=== PATIENT | male | born 1955 | race Two or more races ===

== ENCOUNTER → 2016-09-16 | Outpatient (REF) | payer MEDICARE, MEDICAID ==
[~2016-09-16] MED LIST: /METO25TAB PO; ASPI81TA85 PO; CLOP75TA2 PO; LIPI80TA PO; [UNRECOGNIZED DRUG - CODE] PO
[2016-09-16 18:21] LABS: ALBUMIN 3.7 GM/DL (3.2-5.2); ALBUMIN/GLOBULIN RATIO 0.93 (1.00-1.93); ALKALINE PHOSPHATASE 72 U/L (45-117); ALT/SGPT 24 U/L (12-78); ANION GAP 6 MEQ/L (8-16); AST/SGOT 9 U/L (15-37); BILIRUBIN,TOTAL 0.5 MG/DL (0.2-1.0); BLOOD UREA NITROGEN 16 MG/DL (7-18); CALCIUM LEVEL 8.9 MG/DL (8.8-10.2); CARBON DIOXIDE LEVEL 29 MEQ/L (21-32); CHLORIDE LEVEL 103 MEQ/L (98-107); GLOMERULAR FILTRATION RATE > 60.0 (>49); GLUCOSE, FASTING 111 MG/DL (80-110); POTASSIUM SERUM 4.5 MEQ/L (3.5-5.1); SODIUM LEVEL 138 MEQ/L (136-145); TOTAL PROTEIN 7.7 GM/DL (6.4-8.2)
== END ==
LOC: M SFHCCLAY 10:21
PROVIDERS: ATTEND Family Medicine
DX: E11.9 Type 2 diabetes mellitus without complications (principal)

== ENCOUNTER → 2016-10-11 | Outpatient (REF) | payer MEDICARE, MEDICAID ==
[2016-10-11 11:51] LABS: INR 0.87
== END ==
LOC: M LABDRAWC 10:34
PROVIDERS: ATTEND Neurological Surgery
DX: Z01.818 Encounter for other preprocedural examination (principal); R79.1 Abnormal coagulation profile

== ENCOUNTER → 2016-10-14 | Outpatient (REF) | payer MEDICARE, MEDICAID ==
[2016-10-14 17:04] LABS: BASO % 0.8 % (0.0-1.0); EOS # 0.2 K/mm3 (0.0-0.50); EOS % 3.8 % (0.0-3.0); LARGE UNSTAINED CELL # 0.1 K/mm3 (0.0-0.4); LARGE UNSTAINED CELL % 1.9 % (0.0-4.0); LYMPH # 1.3 K/mm3 (1.5-4.5); LYMPH % 21.9 % (24.0-44.0); MEAN CORPUSCULAR HEMOGLOBIN 31.3 pg (27.0-33.0); MEAN CORPUSCULAR HGB CONC 34.3 g/dl (32.0-36.5); MEAN CORPUSCULAR VOLUME 91.2 fl (80.0-96.0); MONO # 0.4 K/mm3 (0.0-0.8); MONO % 7.6 % (0.0-5.0); NEUTROPHILS # 3.4 K/mm3 (1.8-7.7); PLATELET COUNT, AUTOMATED 275 k/mm3 (150-450); RED CELL DISTRIBUTION WIDTH 12.7 % (11.5-14.5); WHITE BLOOD COUNT 5.3 K/mm3 (4.0-10.0)
== END ==
LOC: M LABDRAWC 16:16
PROVIDERS: ATTEND Neurological Surgery
DX: Z01.818 Encounter for other preprocedural examination (principal)

== ENCOUNTER → 2016-10-17 | Outpatient (CLI) | payer MEDICARE, MEDICAID ==
--- NOTE | 2016-10-17 10:31 | REP ---
LEFT HIP, TWO VIEWS: HISTORY: Pain. There is no acute fracture or dislocation. The joint space is normal in appearance. Calcifications are present in the soft tissue lateral to the greater trochanter. IMPRESSION: There is no acute fracture or dislocation.
== END ==
LOC: M CLY 08:38
PROVIDERS: ATTEND Psychiatry & Neurology Neurology
DX: M25.552 Pain in left hip (principal)

== ENCOUNTER → 2016-10-23 | Outpatient (CLI) | payer MEDICARE, MEDICAID ==
[~2016-10-23] MED LIST changes: +CONRAY-43 43% 50ML VIAL (Q9960) As Ordered ONE; +ISOVUE-M 300 61% 15ML VIAL (Q9967) As Ordered ONE
--- NOTE | 2016-10-23 10:15 | REP ---
CT myelogram lumbar spine: History: Low back pain. No comparison imaging. Technique: The injection procedure is performed and dictated separately. Helical scanning is acquired and axial 4 mm slices are reformatted. Coronal and sagittal multiplanar re-formation images are generated and reviewed. CT findings: There is a mild old appearing wedge compression deformity at the L2 vertebral body with L1-2 and L2-3 well established discogenic spurring. Approximately 50% loss of vertebral body height is seen at the L2 vertebral body. There is subtle old posterior spurring at the inferior endplate of L2 indenting the thecal sac margin. The tip of the conus is normal in position and appearance at the L1 vertebral body level. No disc herniation is seen at L1-2 or at L2-3. At L3-4, there is degenerative disc narrowing and osteophyte formation is seen anteriorly. Minimal facet hypertrophy changes are seen. No neural foraminal encroachment is seen. No central canal stenosis is noted. At L4-L5, there is mild facet hypertrophy bilaterally. Mild diffuse disc bulging is seen. At L5-S1, there is mild facet hypertrophy again noted. There is minimal diffuse disc bulging. No focal disc herniation is seen. Root sleeves are symmetrically opacified. There is no evidence of spondylolysis or spondylolisthesis. Impression: Old L2 compression deformity with associated degenerative disc disease at L1-2, L2-3 and to some degree at the remainder of the lumbar spine levels. Diffuse disc bulging at several levels. No disc herniation, central canal stenosis, or neural foraminal encroachment is appreciated. Incidental note is made of a right renal cyst, 2.9 cm in greatest diameter. Signed by Malcolm Garzon MD 10/23/2016 12:57 P
--- NOTE | 2016-10-23 10:16 | REP ---
LUMBAR MYELOGRAM: The procedure was performed by DUC Vazquez under the direct supervision of Dr. Garzon. The procedure along with its risks, benefits and complications were discussed wit the patient prior to the procedure. Informed consent was obtained both verbally and written. The patient was identified in the x-ray suite and placed in a prone position on the table. Under fluoroscopic guidance, an appropriate site was chosen. This area was prepped and draped in the usual sterile fashion. A procedural "time out" was performed to ensure that the correct patient, site and procedure were being performed. Local infiltrate of anesthesia was achieved using 5 mL of 1% lidocaine. Lumbar puncture was performed at L2-3 via right oblique sublaminal approach using a 3.5-inch, 20-gauge spinal needle. Retrograde free flow of clear CSF was obtained. 8 mL of Isovue 300- M were injected intrathecally for the CT portion of the examination. The patient tolerated the procedure well and went on to CT for further evaluation. Fluoroscopy time of 17 seconds. Reviewed by DUC Vazquez 10/23/2016 12:46 PEdited and Signed by Malcolm Garzon MD 10/23/2016 03:53 P
== END ==
LOC: M RADPRO 07:37
PROVIDERS: ATTEND Neurological Surgery
DX: M51.36 Other intervertebral disc degeneration, lumbar region (principal); M51.06 Intervertebral disc disorders with myelopathy, lumbar region; N28.1 Cyst of kidney, acquired; Z87.891 Personal history of nicotine dependence; E11.40 Type 2 diabetes mellitus with diabetic neuropathy, unspecified; I10 Essential (primary) hypertension; M48.00 Spinal stenosis, site unspecified; M41.9 Scoliosis, unspecified; I25.2 Old myocardial infarction; Z79.82 Long term (current) use of aspirin; Z79.84 Long term (current) use of oral hypoglycemic drugs; Z79.899 Other long term (current) drug therapy; Z95.0 Presence of cardiac pacemaker; Z95.4 Presence of other heart-valve replacement
CPT/HCPCS: 62304; 72131; Q9967

== ENCOUNTER → 2017-03-17 | Outpatient (REF) | payer MEDICARE, MEDICAID ==
[2017-03-17 18:45] LABS: ALKALINE PHOSPHATASE 58 U/L (45-117); ALT/SGPT 24 U/L (12-78); ANION GAP 7 MEQ/L (8-16); AST/SGOT 11 U/L (7-37); BILIRUBIN,TOTAL 0.4 MG/DL (0.2-1.0); BLOOD UREA NITROGEN 24 MG/DL (7-18); CALCIUM LEVEL 9.4 MG/DL (8.8-10.2); CARBON DIOXIDE LEVEL 29 MEQ/L (21-32); CHLORIDE LEVEL 104 MEQ/L (98-107); CREATININE FOR GFR 0.98 MG/DL (0.70-1.30); GLOMERULAR FILTRATION RATE > 60.0 (>49); GLUCOSE, FASTING 121 MG/DL (80-110); POTASSIUM SERUM 4.5 MEQ/L (3.5-5.1); SODIUM LEVEL 140 MEQ/L (136-145)
[2017-03-17 20:03] LABS: ESTIMATED AVERAGE GLUCOSE 123 MG/DL (60-110); HEMOGLOBIN A1c 5.9 %
== END ==
LOC: M SFHCCLAY 09:52
DX: E11.9 Type 2 diabetes mellitus without complications (principal)
CPT/HCPCS: 80053

== ENCOUNTER → 2017-09-15 | Outpatient (REF) | payer MEDICARE, MEDICAID ==
[2017-09-15 12:42] LABS: ANION GAP 8 MEQ/L (8-16); BLOOD UREA NITROGEN 24 MG/DL (7-18); CALCIUM LEVEL 8.3 MG/DL (8.8-10.2); CARBON DIOXIDE LEVEL 31 MEQ/L (21-32); CHLORIDE LEVEL 103 MEQ/L (98-107); CHOLESTEROL LEVEL 114 MG/DL (<200); CREATININE FOR GFR 1.21 MG/DL (0.70-1.30); CREATININE, URINE 25.5 MG/DL; GLOMERULAR FILTRATION RATE > 60.0 (>49); GLUCOSE, FASTING 139 MG/DL (70-100); HDL CHOLESTEROL 30 MG/DL (>40); LDL CHOLESTEROL 50.8 MG/DL (<100); MALB URINE SIEMENS 7.7 MG/L; MAU/CREAT RATIO 30.1 MCG/MG (0.0-30.0); NON-HDL-C 84 MG/DL; POTASSIUM SERUM 4.3 MEQ/L (3.5-5.1); SODIUM LEVEL 142 MEQ/L (136-145); TRIGLYCERIDES LEVEL 166 MG/DL (<150)
[2017-09-15 13:47] LABS: ESTIMATED AVERAGE GLUCOSE 114 MG/DL (60-110); HEMOGLOBIN A1c 5.6 %
== END ==
LOC: M SFHCCLAY 07:56
DX: E11.9 Type 2 diabetes mellitus without complications (principal); E78.2 Mixed hyperlipidemia; I10 Essential (primary) hypertension
CPT/HCPCS: 83036

== ENCOUNTER → 2018-09-15 | Outpatient (REF) | payer OTHER ==
[~2018-09-15] MED LIST changes: -/METO25TAB PO; -CONRAY-43 43% 50ML VIAL (Q9960) As Ordered ONE; -ISOVUE-M 300 61% 15ML VIAL (Q9967) As Ordered ONE; +METO1TAB87 PO
[2018-09-15 12:25] LABS: HEMOGLOBIN A1c 6.7 %
[2018-09-15 12:29] LABS: ALBUMIN 3.6 GM/DL (3.2-5.2); ALT/SGPT 24 U/L (12-78); BILIRUBIN,TOTAL 0.4 MG/DL (0.2-1.0); BLOOD UREA NITROGEN 25 MG/DL (7-18); CALCIUM LEVEL 8.7 MG/DL (8.8-10.2); CARBON DIOXIDE LEVEL 27 MEQ/L (21-32); CHLORIDE LEVEL 103 MEQ/L (98-107); CHOLESTEROL LEVEL 127 MG/DL (<200); CHOLESTEROL RISK RATIO 3.968 (<5); GLOMERULAR FILTRATION RATE > 60.0 (>49); GLUCOSE, FASTING 136 MG/DL (70-100); HDL CHOLESTEROL 32 MG/DL (>40); LDL CHOLESTEROL 44 MG/DL (<100); NON-HDL-C 95 MG/DL; SODIUM LEVEL 138 MEQ/L (136-145); TOTAL PROTEIN 7.2 GM/DL (6.4-8.2); TRIGLYCERIDES LEVEL 253 MG/DL (<150)
[2018-09-15 12:41] LABS: CREATININE, URINE < 13.0 MG/DL; MALB URINE SIEMENS < 5.0 MG/L
== END ==
LOC: M SFHCCLAY 07:31
PROVIDERS: ATTEND Family Medicine
DX: E11.9 Type 2 diabetes mellitus without complications (principal); E78.2 Mixed hyperlipidemia

== ENCOUNTER → 2019-03-17 | Outpatient (REF) | payer MEDICARE ==
[2019-03-17 12:54] LABS: ALBUMIN 3.4 GM/DL (3.2-5.2); ALT/SGPT 15 U/L (12-78); BILIRUBIN,TOTAL 0.3 MG/DL (0.2-1.0); BLOOD UREA NITROGEN 26 MG/DL (7-18); CALCIUM LEVEL 8.1 MG/DL (8.8-10.2); CARBON DIOXIDE LEVEL 29 MEQ/L (21-32); CHLORIDE LEVEL 106 MEQ/L (98-107); CREATININE FOR GFR 1.07 MG/DL (0.70-1.30); GLOMERULAR FILTRATION RATE > 60.0 (>49); GLUCOSE, FASTING 147 MG/DL (70-100); POTASSIUM SERUM 4.2 MEQ/L (3.5-5.1); SODIUM LEVEL 141 MEQ/L (136-145)
[2019-03-17 13:56] LABS: HEMOGLOBIN A1c 6.4 %
== END ==
LOC: M SFHCCLAY 07:04
PROVIDERS: ATTEND Family Medicine
DX: E11.9 Type 2 diabetes mellitus without complications (principal)

== ENCOUNTER → 2019-04-13 | Outpatient (CLI) | payer MEDICARE ==
--- NOTE | 2019-04-13 13:34 | REP ---
Chest x-ray: Two views. History: Bronchitis. Comparison chest x-ray: March 19, 2011. Findings: The patient is status post median sternotomy. A unipolar pacemaker is seen in place. Cardiomegaly is again observed unchanged. There is blunting of the pleural angles bilaterally left more so than right. There is somewhat nodular pleural thickening in the left posterior chest on lateral film. The lungs overall are hyperinflated as before. No definite infiltrate. Impression: Cardiomegaly with pacemaker and prior sternotomy wires. Small bilateral effusions, left more so than right. Nodular pleural thickening visible posteriorly on the lateral radiograph. Consider chest CT, preferably with IV contrast if feasible. Electronically Signed by Malcolm Garzon MD 04/13/2019 06:55 P
== END ==
LOC: M CLY 10:47
PROVIDERS: ATTEND Nurse Practitioner Family
DX: I51.7 Cardiomegaly (principal); J40 Bronchitis, not specified as acute or chronic

== ENCOUNTER → 2019-05-04 | Outpatient (CLI) | payer MEDICARE ==
[~2019-05-04] MED LIST changes: +ISOVUE-370 76% 100ML VIAL (Q9967) As Ordered ONE
--- NOTE | 2019-05-04 09:45 | REP ---
CT of the chest with IV contrast: Comparison is the PA and lateral chest dated 04/13/2019. There is a left lower lobe infiltrate and left pleural effusion. On the comparison PA and lateral chest. There was the appearance of nodular pleural thickening posteriorly on the lateral view. On the review of the CT today this appearance of nodular thickening as likely artifact from the left lower lobe infiltrate. The there is a 17 ml lung nodule in the deep posterior sulcus of the right lower lobe on image 86. There is focal pleural thickening laterally in the lateral segment right middle lobe on image 67. There is no mediastinal, hilar or axillary lymph node enlargement. The thoracic aorta is unremarkable. The cardiac size is upper normal. There is coronary artery calcified atheroma. There are sternotomy wires and there is a pacemaker. The visualized upper abdominal contents demonstrate a partially visualized right renal upper pole cyst but are otherwise unremarkable. Impression: The left lower lobe infiltrate. Left pleural effusion. Right lower lobe 17 mm lung nodule. Right middle lobe pleural thickening laterally. Follow-up to complete resolution is recommended. If the right lower lobe nodule or left lower lobe infiltrate persist PET scan might be considered. Electronically Signed by Valentin Boggs MD 05/04/2019 09:36 A
== END ==
LOC: M RAD 08:31
PROVIDERS: ATTEND Nurse Practitioner Family
DX: J20.9 Acute bronchitis, unspecified (principal)
CPT/HCPCS: 71260; Q9967

== ENCOUNTER → 2019-06-10 | Outpatient (CLI) | payer MEDICARE ==
[~2019-06-10] MED LIST changes: -ISOVUE-370 76% 100ML VIAL (Q9967) As Ordered ONE
--- NOTE | 2019-06-10 11:18 | REP ---
CT CHEST WITHOUT IV CONTRAST: COMPARISON: 05/04/2019 CT chest performed without IV contrast. Sagittal and coronal reconstruction images are performed. Mild diffuse pleural thickening on the right is stable. There appears to be a band of fibroatelectasis in the right lower lobe posteriorly, which is stable. This was recorded as a nodule on the prior study but on reconstruction images, it elongates and does not appear to represent a focal mass, but rather a band of fibroatelectasis. On the left, there is mild to moderate pleural fluid collection with mild thickening of the adjacent pleural surfaces. This has not significantly changed. There is adjacent consolidation in the left lower lobe, which is stable. This may represent infiltrate or fibroatelectasis. Linear fibroatelectasis is seen in the lingula. No new parenchymal findings are seen. The heart is mildly enlarged. There is no evidence of aneurysm of the thoracic aorta. Multiple sternal wires and mediastinal clips are present. There is no pericardial effusion. No axillary or mediastinal adenopathy is seen. Visualized upper abdominal structures are unremarkable and unchanged. There are degenerative changes of the spine. IMPRESSION: Stable findings as discussed above. Mild diffuse right-sided pleural thickening is stable. Band of fibroatelectasis in the right lower lobe is stable. Mild to moderate left pleural fluid collection and adjacent left lower lobe consolidation is stable. Electronically Signed by Valentin Victoria MD 06/10/2019 03:07 P
== END ==
LOC: M RAD 10:25
PROVIDERS: ATTEND Family Medicine
DX: R91.1 Solitary pulmonary nodule (principal)

== ENCOUNTER → 2019-10-08 | Outpatient (REF) | payer MEDICARE ==
[2019-11-06 02:11] LABS: HEMATOCRIT 45.7 % (42.0-52.0); HEMOGLOBIN 14.3 g/dl (13.5-17.5); MEAN CORPUSCULAR HEMOGLOBIN 29.1 pg (27.0-33.0); MEAN CORPUSCULAR HGB CONC 31.3 g/dl (32.0-36.5); MEAN CORPUSCULAR VOLUME 92.9 fl (80.0-96.0); PLATELET COUNT, AUTOMATED 282 10^3/uL (150-450); RED BLOOD COUNT 4.92 10^6/uL (4.30-6.10); WHITE BLOOD COUNT 5.6 10^3/uL (4.0-10.0)
[2019-11-25 19:59] LABS: ALBUMIN 3.4 GM/DL (3.2-5.2); ALT/SGPT 20 U/L (12-78); BILIRUBIN,TOTAL 0.6 MG/DL (0.2-1.0); BLOOD UREA NITROGEN 23 MG/DL (7-18); CALCIUM LEVEL 8.6 MG/DL (8.8-10.2); CARBON DIOXIDE LEVEL 33 MEQ/L (21-32); CHLORIDE LEVEL 101 MEQ/L (98-107); CHOLESTEROL LEVEL 123 MG/DL (<200); CHOLESTEROL RISK RATIO 3.416 (<5); CREATININE FOR GFR 1.22 MG/DL (0.70-1.30); GLOMERULAR FILTRATION RATE > 60.0 (>49); GLUCOSE, FASTING 128 MG/DL (70-100); HDL CHOLESTEROL 36 MG/DL (>40); LDL CHOLESTEROL 55 MG/DL (<100); NON-HDL-C 87 MG/DL; POTASSIUM SERUM 4.7 MEQ/L (3.5-5.1); SODIUM LEVEL 139 MEQ/L (136-145); TOTAL PROTEIN 7.6 GM/DL (6.4-8.2); TRIGLYCERIDES LEVEL 160 MG/DL (<150)
[2019-11-26 14:22] LABS: HEMOGLOBIN A1c 6.3 %
== END ==
LOC: M SFHCCLAY 09:45
PROVIDERS: ATTEND Family Medicine
DX: E11.9 Type 2 diabetes mellitus without complications (principal); I10 Essential (primary) hypertension; I25.10 Atherosclerotic heart disease of native coronary artery without angina pectoris

== ENCOUNTER → 2019-12-28 | Outpatient (CLI) | payer MEDICARE ==
--- NOTE | 2019-12-29 09:54 | REP ---
INDICATION: LEFT LUNG MASS. COMPARISON: CT scan of the chest 05/04/2019 and 06/10/2019. TECHNIQUE: After the intravenous administration of 7.81 mCi of FDG 18 triplane whole-body PET-CT was performed from the skull base to the mid thigh. FINDINGS: In the right anterior cervical lymph node chain and just proximal to the neck root there is a hypermetabolic lymph node with SUV value of 4.3. Seen mixed within the thickened pleural reflections and suspected loculated pleural fluid in the left lower lobe and scattered with in the area of suspected lung consolidation adjacent to that scattered foci of hypermetabolic activity are seen with maximal SUV values of 4.4. The potential nodule seen previously in the right lower lobe on both prior CTs is not hypermetabolic. No other areas of abnormal hypermetabolic activity are seen in the neck, chest, abdomen, or pelvis. IMPRESSION: Left lower lung field hypermetabolic activity, as described above. Inflammatory versus neoplastic change. 1. There is a single focus of hypermetabolic activity seen in the right anterior lower neck, as described above, and likely representing a hypermetabolic lymph node. This should be correlated clinically as it likely represents inflammatory change. Certainly, neoplastic change cannot be completely ruled out by this examination. <Electronically signed by Ranulfo Vazquez > 12/29/19 [id number]
== END ==
LOC: M PLARAD 09:16
PROVIDERS: ATTEND Internal Medicine Pulmonary Disease
DX: R91.8 Other nonspecific abnormal finding of lung field (principal)
CPT/HCPCS: 78815; A9552

== ENCOUNTER → 2020-01-10 | Outpatient (REF) | payer MEDICARE ==
[2020-01-10 17:24] LABS: BASO % 0.5 % (0.0-1.0); EOS # 0.2 10^3/uL (0.0-0.5); EOS % 2.7 % (0.0-3.0); HEMATOCRIT 46.6 % (42.0-52.0); HEMOGLOBIN 14.6 g/dl (13.5-17.5); LYMPH # 1.1 10^3/uL (1.5-5.0); LYMPH % 18.1 % (24.0-44.0); MEAN CORPUSCULAR HEMOGLOBIN 28.9 pg (27.0-33.0); MEAN CORPUSCULAR HGB CONC 31.3 g/dl (32.0-36.5); MEAN CORPUSCULAR VOLUME 92.1 fl (80.0-96.0); MONO # 0.6 10^3/uL (0.0-0.8); MONO % 10.3 % (0.0-5.0); NEUTROPHILS % 68.2 % (36.0-66.0); PLATELET COUNT, AUTOMATED 258 10^3/uL (150-450); RED BLOOD COUNT 5.06 10^6/uL (4.30-6.10); WHITE BLOOD COUNT 5.9 10^3/uL (4.0-10.0)
[2020-01-10 17:48] LABS: PROTHROMBIN TIME 13.4 SECONDS (12.5-14.3)
[2020-01-10 18:16] LABS: CALCIUM LEVEL 8.4 MG/DL (8.8-10.2); CREATININE FOR GFR 1.35 MG/DL (0.70-1.30); GLOMERULAR FILTRATION RATE 56.3 (>49); POTASSIUM SERUM 4.8 MEQ/L (3.5-5.1)
== END ==
LOC: M LAB REF 16:41
PROVIDERS: ATTEND Internal Medicine Pulmonary Disease
DX: R91.8 Other nonspecific abnormal finding of lung field (principal)

== ENCOUNTER → 2020-04-04 | Outpatient (REF) | payer MEDICARE ==
[2020-04-04 11:42] LABS: BASO % 0.5 % (0.0-1.0); EOS # 0.3 10^3/uL (0.0-0.5); EOS % 3.9 % (0.0-3.0); HEMATOCRIT 43.3 % (42.0-52.0); HEMOGLOBIN 13.7 g/dl (13.5-17.5); LYMPH # 1.1 10^3/uL (1.5-5.0); LYMPH % 16.8 % (24.0-44.0); MEAN CORPUSCULAR HEMOGLOBIN 29.4 pg (27.0-33.0); MEAN CORPUSCULAR HGB CONC 31.6 g/dl (32.0-36.5); MEAN CORPUSCULAR VOLUME 92.9 fl (80.0-96.0); MONO # 0.6 10^3/uL (0.0-0.8); MONO % 8.7 % (0.0-5.0); NEUTROPHILS # 4.5 10^3/uL (1.5-8.5); NEUTROPHILS % 69.9 % (36.0-66.0); PLATELET COUNT, AUTOMATED 247 10^3/uL (150-450); RED BLOOD COUNT 4.66 10^6/uL (4.30-6.10); WHITE BLOOD COUNT 6.4 10^3/uL (4.0-10.0)
[2020-04-04 12:16] LABS: ALBUMIN 3.7 GM/DL (3.2-5.2); ALT/SGPT 19 U/L (12-78); BILIRUBIN,TOTAL 0.7 MG/DL (0.2-1.0); BLOOD UREA NITROGEN 32 MG/DL (7-18); CALCIUM LEVEL 9.2 MG/DL (8.8-10.2); CARBON DIOXIDE LEVEL 28 MEQ/L (21-32); CHLORIDE LEVEL 103 MEQ/L (98-107); CREATININE FOR GFR 1.19 MG/DL (0.70-1.30); GLOMERULAR FILTRATION RATE > 60.0 (>49); GLUCOSE, FASTING 145 MG/DL (70-100); POTASSIUM SERUM 4.5 MEQ/L (3.5-5.1); SODIUM LEVEL 137 MEQ/L (136-145); TOTAL PROTEIN 7.6 GM/DL (6.4-8.2)
== END ==
LOC: M SFHCCLAY 07:30
PROVIDERS: ATTEND Family Medicine
DX: E11.9 Type 2 diabetes mellitus without complications (principal); I10 Essential (primary) hypertension

== ENCOUNTER → 2020-10-13 | Outpatient (REF) | payer MEDICARE ==
[2020-10-13 16:15] LABS: HEMOGLOBIN A1c 6.3 %
[2020-10-13 16:41] LABS: ALBUMIN 3.4 GM/DL (3.2-5.2); ALT/SGPT 39 U/L (12-78); BILIRUBIN,TOTAL 0.8 MG/DL (0.2-1.0); BLOOD UREA NITROGEN 22 MG/DL (7-18); CARBON DIOXIDE LEVEL 29 MEQ/L (21-32); CHLORIDE LEVEL 102 MEQ/L (98-107); CHOLESTEROL LEVEL 117 MG/DL (<200); CHOLESTEROL RISK RATIO 4.875 (<5); CREATININE FOR GFR 1.27 MG/DL (0.70-1.30); GLOMERULAR FILTRATION RATE > 60.0 (>49); GLUCOSE, FASTING 145 MG/DL (70-100); HDL CHOLESTEROL 24 MG/DL (>40); LDL CHOLESTEROL 30 MG/DL (<100); NON-HDL-C 93 MG/DL; POTASSIUM SERUM 4.8 MEQ/L (3.5-5.1); SODIUM LEVEL 137 MEQ/L (136-145); TOTAL PROTEIN 7.1 GM/DL (6.4-8.2); TRIGLYCERIDES LEVEL 315 MG/DL (<150)
[2020-10-13 16:51] LABS: MALB URINE SIEMENS 44.1 MG/L; MAU/CREAT RATIO 34.7 MCG/MG (0.0-30.0)
== END ==
LOC: M SFHCCLAY 08:15
PROVIDERS: ATTEND Family Medicine
DX: E11.9 Type 2 diabetes mellitus without complications (principal)

== ENCOUNTER → 2021-01-25 | Outpatient (REF) | payer MEDICARE ==
[2021-01-25 12:31] LABS: BLOOD UREA NITROGEN 40 MG/DL (7-18); CALCIUM LEVEL 8.8 MG/DL (8.8-10.2); CARBON DIOXIDE LEVEL 27 MEQ/L (21-32); CHLORIDE LEVEL 106 MEQ/L (98-107); CREATININE FOR GFR 1.07 MG/DL (0.70-1.30); GLOMERULAR FILTRATION RATE > 60.0 (>49); GLUCOSE, FASTING 162 MG/DL (70-100); POTASSIUM SERUM 4.5 MEQ/L (3.5-5.1); SODIUM LEVEL 140 MEQ/L (136-145)
== END ==
LOC: M LABDRAWC 11:20 → M LAB REF 11:20
PROVIDERS: ATTEND Physician Assistant
DX: I25.5 Ischemic cardiomyopathy (principal)

== ENCOUNTER → 2021-04-19 | Outpatient (REF) | payer MEDICARE, OTHER ==
[2021-04-19 12:45] LABS: BASO % 0.4 % (0.0-1.0); EOS # 0.2 10^3/uL (0.0-0.5); HEMATOCRIT 46.4 % (42.0-52.0); LYMPH # 0.8 10^3/uL (1.5-5.0); LYMPH % 15.8 % (24.0-44.0); MEAN CORPUSCULAR HEMOGLOBIN 30.4 pg (27.0-33.0); MEAN CORPUSCULAR HGB CONC 32.3 g/dl (32.0-36.5); MEAN CORPUSCULAR VOLUME 94.1 fl (80.0-96.0); MONO # 0.6 10^3/uL (0.0-0.8); MONO % 12.1 % (2.0-8.0); NEUTROPHILS # 3.4 10^3/uL (1.5-8.5); NEUTROPHILS % 68.1 % (36.0-66.0); PLATELET COUNT, AUTOMATED 289 10^3/uL (150-450); RED BLOOD COUNT 4.93 10^6/uL (4.30-6.10); WHITE BLOOD COUNT 4.9 10^3/uL (4.0-10.0)
[2021-04-19 13:17] LABS: HEMOGLOBIN A1c 6.3 %
[2021-04-19 13:23] LABS: ALBUMIN 3.8 GM/DL (3.2-5.2); ALT/SGPT 36 U/L (12-78); BILIRUBIN,TOTAL 0.5 MG/DL (0.2-1.0); BLOOD UREA NITROGEN 27 MG/DL (7-18); CALCIUM LEVEL 8.7 MG/DL (8.8-10.2); CARBON DIOXIDE LEVEL 26 MEQ/L (21-32); CHLORIDE LEVEL 102 MEQ/L (98-107); CREATININE FOR GFR 1.27 MG/DL (0.70-1.30); GLOMERULAR FILTRATION RATE > 60.0 (>49); GLUCOSE, FASTING 145 MG/DL (70-100); POTASSIUM SERUM 4.3 MEQ/L (3.5-5.1); SODIUM LEVEL 136 MEQ/L (136-145); TOTAL PROTEIN 7.7 GM/DL (6.4-8.2)
== END ==
LOC: M SFHCCLAY 08:16
PROVIDERS: ATTEND Family Medicine
DX: E11.9 Type 2 diabetes mellitus without complications (principal); I10 Essential (primary) hypertension

== ENCOUNTER 2021-05-03 19:56 | Inpatient (IN) | payer MEDICARE ==
[~2021-05-03] VITALS: Ht 172.7 cm; Wt 133.7 kg
[2021-05-03] MEDS: METOPROLOL 5 MG/5 ML VIAL IV SCH ×3 (20:10→20:32)
[2021-05-03] MEDS ORDERED: NITROGLYCERIN 0.4 MG SUBL TABLET SL PRN (20:10)
[2021-05-03] MEDS ORDERED: CARVedilol 12.5 MG TAB PO ONE (20:25)
[2021-05-03 20:40] LABS: BASO % 0.5 % (0.0-1.0); EOS # 0.1 10^3/uL (0.0-0.5); EOS % 2.1 % (0.0-3.0); HEMATOCRIT 45.4 % (42.0-52.0); HEMOGLOBIN 15.1 g/dl (13.5-17.5); LYMPH # 1.2 10^3/uL (1.5-5.0); LYMPH % 19.5 % (24.0-44.0); MEAN CORPUSCULAR HEMOGLOBIN 31.1 pg (27.0-33.0); MEAN CORPUSCULAR HGB CONC 33.3 g/dl (32.0-36.5); MEAN CORPUSCULAR VOLUME 93.6 fl (80.0-96.0); MONO # 0.6 10^3/uL (0.0-0.8); MONO % 9.5 % (2.0-8.0); NEUTROPHILS # 4.3 10^3/uL (1.5-8.5); NEUTROPHILS % 67.9 % (36.0-66.0); PLATELET COUNT, AUTOMATED 283 10^3/uL (150-450); RED BLOOD COUNT 4.85 10^6/uL (4.30-6.10); WHITE BLOOD COUNT 6.3 10^3/uL (4.0-10.0)
[2021-05-03 21:04] LABS: CK-MB VALUE MASS < 1.0 NG/ML (<3.6); CPK CREATINE PHOSPHOKINASE 66 U/L (39-308); MB/CK RELATIVE INDEX 1.52 (< OR =4)
[2021-05-03 21:09] LABS: ALBUMIN 3.8 GM/DL (3.2-5.2); BILIRUBIN,DIRECT 0.1 MG/DL (0.0-0.2); BILIRUBIN,TOTAL 0.5 MG/DL (0.2-1.0); CALCIUM LEVEL 9.1 MG/DL (8.8-10.2); CREATININE FOR GFR 1.51 MG/DL (0.70-1.30); FREE T4 1.07 NG/DL (0.76-1.46); GLOMERULAR FILTRATION RATE 49.3 (>49); POTASSIUM SERUM 3.9 MEQ/L (3.5-5.1); THYROID STIMULATING HORMONE 2.3 uIU/ML (0.358-3.740); TOTAL PROTEIN 8.1 GM/DL (6.4-8.2)
[2021-05-03 21:12] LABS: INR 0.93; PROTHROMBIN TIME 12.9 SECONDS (12.7-14.5)
[2021-05-03 21:13] LABS: PARTIAL THROMBOPLASTIN TIME 32.8 SECONDS (25.9-37.0)
[2021-05-03] MEDS: NS 1,000 ML IV SCH (21:25)
[2021-05-03] MEDS ORDERED: NS 500 ML IV ONE (21:25)
[2021-05-03 21:28] LABS: RSV AMPLIFICATION NEGATIVE (NEGATIVE)
[2021-05-03 21:46] LABS: CK-MB VALUE MASS < 1.0 NG/ML (<3.6); CPK CREATINE PHOSPHOKINASE 61 U/L (39-308); MB/CK RELATIVE INDEX 1.64 (< OR =4)
[2021-05-03 21:49] LABS: MAGNESIUM LEVEL 2.2 MG/DL (1.8-2.4)
[2021-05-03] MEDS ORDERED: APIXABAN 5 MG TAB (ELIQUIS) PO ONE (22:15)
[2021-05-03] MEDS ORDERED: FURO40TA2 PO (23:23)
[2021-05-03] MEDS ORDERED: CARV12.5 PO (23:23)
[2021-05-03] MEDS ORDERED: ATOR80TA59 PO (23:23)
[2021-05-03] MEDS ORDERED: FAMO20TA4 PO (23:23)
[2021-05-03] MEDS ORDERED: CLOP75TA2 PO (23:23)
[2021-05-03] MEDS ORDERED: RAMI1CAP24 PO (23:23)
[2021-05-03] MEDS ORDERED: FARX1TAB3 PO (23:23)
[2021-05-03] MEDS ORDERED: FLON1SPR (23:23)
[2021-05-03] MEDS ORDERED: VITMTA PO (23:23)
[2021-05-03] MEDS ORDERED: LYRI225C PO (23:23)
[2021-05-03] MEDS ORDERED: METF-839 PO (23:23)
[2021-05-03] MEDS ORDERED: HOME MED LIST COMPLETE! XX SCH (23:25)
[2021-05-04] MEDS ORDERED: METOPROLOL 5 MG/5 ML VIAL IV PRN (00:15)
[2021-05-04] MEDS ORDERED: FAMOTIDINE 20 MG TAB PO PRN (00:35)
[2021-05-04] MEDS ORDERED: GLUCOSE 4GM CHEW TABLET PO PRN (01:00)
[2021-05-04] MEDS ORDERED: GLUCAGON INJ 1MG VIAL SC PRN (01:00)
[2021-05-04] MEDS ORDERED: DEXTROSE 50% 50 ML SYRINGE IV PRN (01:00)
[2021-05-04] MEDS: NS 1,000 ML IV SCH ×2 (05:55→13:33)
[2021-05-04] MEDS: metFORMIN (GLUCOPHAGE) 500MG TAB PO SCH ×2 (08:57→17:18)
[2021-05-04] MEDS: FUROSEMIDE 40 MG TAB PO SCH ×2 (08:57→17:18)
[2021-05-04] MEDS: CLOPIDOGREL 75 MG TAB PO SCH (08:57)
[2021-05-04] MEDS: HumaLOG INSULIN (NovoLOG) PER UNIT SC SCH ×3 (08:57→17:18)
[2021-05-04] MEDS: MULTIVITAMINS/MINERALS THERAP 1 TAB PO SCH (08:57)
[2021-05-04] MEDS: ASPIRIN 81 MG CHEW TABLET PO SCH (08:58)
[2021-05-04] MEDS: APIXABAN 5 MG TAB (ELIQUIS) PO SCH ×2 (08:58→20:30)
[2021-05-04] MEDS: PREGABALIN 75 MG CAP(LYRICA) PO SCH ×2 (08:58→20:28)
[2021-05-04] MEDS: CARVedilol 12.5 MG TAB PO SCH ×2 (08:58→20:29)
[2021-05-04 10:25] LABS: BLOOD UREA NITROGEN 27 MG/DL (7-18); CALCIUM LEVEL 8.6 MG/DL (8.8-10.2); CARBON DIOXIDE LEVEL 29 MEQ/L (21-32); CHLORIDE LEVEL 108 MEQ/L (98-107); CREATININE FOR GFR 1.15 MG/DL (0.70-1.30); GLOMERULAR FILTRATION RATE > 60.0 (>49); GLUCOSE, FASTING 156 MG/DL (70-100); MAGNESIUM LEVEL 2.3 MG/DL (1.8-2.4); POTASSIUM SERUM 4.1 MEQ/L (3.5-5.1); SODIUM LEVEL 141 MEQ/L (136-145)
[2021-05-04] MEDS: ramipriL 5 MG CAP PO SCH (10:27)
[2021-05-04] MEDS: CHLORHEXIDINE GLUCONATE 0.12 % 15ML UDC (PERIDEX ORAL RINSE) MT SCH ×2 (10:27→21:00)
[2021-05-04 15:19] VITALS: BP 115/65
[2021-05-04 16:57] VITALS: BP 107/55
[2021-05-04 20:00] VITALS: BP 123/61
[2021-05-04] MEDS ORDERED: HumaLOG INSULIN (NovoLOG) PER UNIT SC SCH (21:00)
[2021-05-04] MEDS ORDERED: ATORVASTATIN 20 MG TAB PO SCH (21:00)
[2021-05-05] VITALS: BP 105/57
[2021-05-05 04:00] VITALS: BP 122/62
[2021-05-05 04:59] LABS: HEMATOCRIT 42.4 % (42.0-52.0); HEMOGLOBIN 13.5 g/dl (13.5-17.5); MEAN CORPUSCULAR HEMOGLOBIN 31.1 pg (27.0-33.0); MEAN CORPUSCULAR HGB CONC 31.8 g/dl (32.0-36.5); MEAN CORPUSCULAR VOLUME 97.7 fl (80.0-96.0); PLATELET COUNT, AUTOMATED 216 10^3/uL (150-450); RED BLOOD COUNT 4.34 10^6/uL (4.30-6.10); WHITE BLOOD COUNT 6.4 10^3/uL (4.0-10.0)
[2021-05-05 05:25] LABS: BLOOD UREA NITROGEN 21 MG/DL (7-18); CALCIUM LEVEL 8.6 MG/DL (8.8-10.2); CARBON DIOXIDE LEVEL 31 MEQ/L (21-32); CHLORIDE LEVEL 108 MEQ/L (98-107); CREATININE FOR GFR 1.11 MG/DL (0.70-1.30); GLOMERULAR FILTRATION RATE > 60.0 (>49); GLUCOSE, FASTING 136 MG/DL (70-100); POTASSIUM SERUM 3.9 MEQ/L (3.5-5.1); SODIUM LEVEL 143 MEQ/L (136-145)
[2021-05-05 08:00] VITALS: BP 121/73
[2021-05-05] MEDS: ramipriL 5 MG CAP PO SCH (09:05)
[2021-05-05] MEDS: MULTIVITAMINS/MINERALS THERAP 1 TAB PO SCH (09:05)
[2021-05-05] MEDS: FUROSEMIDE 40 MG TAB PO SCH (09:05)
[2021-05-05] MEDS: APIXABAN 5 MG TAB (ELIQUIS) PO SCH (09:05)
[2021-05-05] MEDS: CLOPIDOGREL 75 MG TAB PO SCH (09:05)
[2021-05-05] MEDS: ASPIRIN 81 MG CHEW TABLET PO SCH (09:05)
[2021-05-05 09:06] VITALS: BP 121/73
[2021-05-05] MEDS: CARVedilol 12.5 MG TAB PO SCH (09:06)
[2021-05-05] MEDS: metFORMIN (GLUCOPHAGE) 500MG TAB PO SCH (09:06)
[2021-05-05] MEDS: HumaLOG INSULIN (NovoLOG) PER UNIT SC SCH ×2 (09:07→13:04)
[2021-05-05] MEDS: PREGABALIN 75 MG CAP(LYRICA) PO SCH (09:24)
[2021-05-05] MEDS: CHLORHEXIDINE GLUCONATE 0.12 % 15ML UDC (PERIDEX ORAL RINSE) MT SCH (09:25)
[2021-05-05] MEDS ORDERED: ELIQ5TAB PO (11:04)
== END 2021-05-05 14:13 | disposition home or self-care (01) | DRG 309 ==
LOC: M ED 19:56 → M ED INP 05-04 00:14 → ENRESERV 05-04 13:47 → M PCU 05-04 15:10
PROVIDERS: ADMIT Internal Medicine; ATTEND Internal Medicine
DX: I48.92 Unspecified atrial flutter (principal); J90 Pleural effusion, not elsewhere classified; Z68.41 Body mass index [BMI] 40.0-44.9, adult; I25.10 Atherosclerotic heart disease of native coronary artery without angina pectoris; I25.2 Old myocardial infarction; E11.22 Type 2 diabetes mellitus with diabetic chronic kidney disease; E78.5 Hyperlipidemia, unspecified; N18.30 Chronic kidney disease, stage 3 unspecified; I48.91 Unspecified atrial fibrillation; E66.9 Obesity, unspecified; Z95.1 Presence of aortocoronary bypass graft; Z79.02 Long term (current) use of antithrombotics/antiplatelets; Z79.899 Other long term (current) drug therapy; Z88.8 Allergy status to other drugs, medicaments and biological substances; Z79.84 Long term (current) use of oral hypoglycemic drugs; Z87.891 Personal history of nicotine dependence; Z20.822 Contact with and (suspected) exposure to COVID-19; Z95.810 Presence of automatic (implantable) cardiac defibrillator

== ENCOUNTER → 2021-10-16 | Outpatient (REF) | payer MEDICARE ==
[~2021-10-16] MED LIST changes: +ATOR80TA59 PO; +CARV12.5 PO; +ELIQ5TAB PO; +FAMO20TA4 PO; +FARX1TAB3 PO; +FLON1SPR; +FURO40TA2 PO; +LYRI225C PO; +METF-839 PO; +RAMI1CAP24 PO; +VITMTA PO
[2021-10-16 11:21] LABS: BASO % 0.5 % (0.0-1.0); EOS # 0.2 10^3/uL (0.0-0.5); EOS % 2.6 % (0.0-3.0); HEMATOCRIT 47.9 % (42.0-52.0); HEMOGLOBIN 15.3 g/dl (13.5-17.5); LYMPH # 0.9 10^3/uL (1.5-5.0); LYMPH % 15.1 % (24.0-44.0); MEAN CORPUSCULAR HGB CONC 31.9 g/dl (32.0-36.5); MEAN CORPUSCULAR VOLUME 93.9 fl (80.0-96.0); MONO # 0.6 10^3/uL (0.0-0.8); MONO % 9.2 % (2.0-8.0); NEUTROPHILS # 4.4 10^3/uL (1.5-8.5); NEUTROPHILS % 72.4 % (36.0-66.0); PLATELET COUNT, AUTOMATED 271 10^3/uL (150-450); WHITE BLOOD COUNT 6.1 10^3/uL (4.0-10.0)
[2021-10-16 11:57] LABS: ALBUMIN 3.6 GM/DL (3.2-5.2); ALT/SGPT 17 U/L (12-78); BILIRUBIN,TOTAL 0.5 MG/DL (0.2-1.0); BLOOD UREA NITROGEN 26 MG/DL (7-18); CALCIUM LEVEL 8.8 MG/DL (8.8-10.2); CARBON DIOXIDE LEVEL 31 MEQ/L (21-32); CHLORIDE LEVEL 102 MEQ/L (98-107); CHOLESTEROL LEVEL 132 MG/DL (<200); CHOLESTEROL RISK RATIO 4.258 (<5); CREATININE FOR GFR 1.25 MG/DL (0.70-1.30); GLOMERULAR FILTRATION RATE > 60.0 (>49); GLUCOSE, FASTING 133 MG/DL (70-100); HDL CHOLESTEROL 31 MG/DL (>40); LDL CHOLESTEROL 58 MG/DL (<100); NON-HDL-C 101 MG/DL; SODIUM LEVEL 139 MEQ/L (136-145); TOTAL PROTEIN 7.9 GM/DL (6.4-8.2); TRIGLYCERIDES LEVEL 215 MG/DL (<150)
[2021-10-16 15:23] LABS: HEMOGLOBIN A1c 6.2 %
== END ==
LOC: M SFHCCLAY 08:23
PROVIDERS: ATTEND Family Medicine
DX: E11.9 Type 2 diabetes mellitus without complications (principal)

== ENCOUNTER → 2022-04-19 | Outpatient (REF) | payer MEDICARE ==
[2022-04-19 11:52] LABS: CALCIUM LEVEL 8.4 MG/DL (8.3-10.6); CREATININE FOR GFR 1.39 MG/DL (0.70-1.30); GLOMERULAR FILTRATION RATE 54.1 (>49); POTASSIUM SERUM 4.4 MMOL/L (3.5-5.1)
[2022-04-19 11:53] LABS: ALBUMIN 3.7 G/DL (3.2-5.2); BILIRUBIN,TOTAL 0.5 MG/DL (0.3-1.2); TOTAL PROTEIN 7.4 G/DL (5.7-8.2)
[2022-04-19 12:31] LABS: HEMOGLOBIN A1c 6.1 % (4.0-6.0)
== END ==
LOC: M SFHCCLAY 07:42
PROVIDERS: ATTEND Family Medicine
DX: E11.9 Type 2 diabetes mellitus without complications (principal)

== ENCOUNTER 2022-09-03 06:29 | Day surgery (SDC) | payer MEDICARE, OTHER ==
[~2022-09-03] VITALS: Ht 172.7 cm; Wt 124.6 kg
[~2022-09-03 06:29] MED LIST changes: +AMIO200T49 PO; +FURO20TA2 PO; +NS 1,000 ML IV ONE
[2022-09-03] MEDS ORDERED: propofoL 500 MG/50 ML VIAL As Ordered ONE (08:16)
[2022-09-03] MEDS ORDERED: LIDOCAINE 2% 100MG/5ML SDV (FOR ANES.) As Ordered ONE (08:16)
[2022-09-03 08:34] VITALS: TEMP 97.1
[2022-09-03 09:00] VITALS: BP 130/68; O2SAT 95
[2022-09-03] MEDS ORDERED: SIMETHICONE 40MG/0.6ML DROPS 30ML As Ordered ONE (15:04)
== END 2022-09-03 12:37 | disposition home or self-care (01) ==
LOC: M OPP 06:29
PROVIDERS: ATTEND Internal Medicine Gastroenterology
DX: Z86.010 Personal history of colon polyps (principal); D12.4 Benign neoplasm of descending colon; K57.30 Diverticulosis of large intestine without perforation or abscess without bleeding; K64.8 Other hemorrhoids; Z87.891 Personal history of nicotine dependence; Z79.01 Long term (current) use of anticoagulants; Z79.02 Long term (current) use of antithrombotics/antiplatelets; Z79.84 Long term (current) use of oral hypoglycemic drugs

== ENCOUNTER → 2023-04-21 | Outpatient (REF) | payer OTHER, MEDICAID ==
[~2023-04-21] MED LIST changes: -NS 1,000 ML IV ONE
[2023-04-21 12:00] LABS: BASO % 0.6 % (0.0-1.0); EOS # 0.2 10^3/uL (0.0-0.5); EOS % 3.1 % (0.0-3.0); HEMATOCRIT 44.1 % (42.0-52.0); HEMOGLOBIN 14.2 g/dl (13.5-17.5); LYMPH # 0.8 10^3/uL (1.5-5.0); LYMPH % 15.5 % (24.0-44.0); MEAN CORPUSCULAR HEMOGLOBIN 30.5 pg (27.0-33.0); MEAN CORPUSCULAR HGB CONC 32.2 g/dl (32.0-36.5); MEAN CORPUSCULAR VOLUME 94.8 fl (80.0-96.0); MONO # 0.4 10^3/uL (0.0-0.8); NEUTROPHILS # 3.6 10^3/uL (1.5-8.5); NEUTROPHILS % 72.6 % (36.0-66.0); PLATELET COUNT, AUTOMATED 208 10^3/uL (150-450); RED BLOOD COUNT 4.65 10^6/uL (4.30-6.10); WHITE BLOOD COUNT 4.9 10^3/uL (4.0-10.0)
[2023-04-21 12:28] LABS: HEMOGLOBIN A1c 5.6 % (4.0-6.0)
[2023-04-21 12:35] LABS: ALBUMIN 3.8 G/DL (3.2-5.2); BILIRUBIN,TOTAL 0.6 MG/DL (0.3-1.2); CALCIUM LEVEL 8.9 MG/DL (8.3-10.6); CHOLESTEROL RISK RATIO 3.7 (<5); CREATININE FOR GFR 1.34 MG/DL (0.70-1.30); GLOMERULAR FILTRATION RATE 56.3 (>49); HDL CHOLESTEROL 33.5 MG/DL (>40); LDL CHOLESTEROL 57.9 MG/DL (<100); NON-HDL-C 90.5 MG/DL; THYROID STIMULATING HORMONE 1.375 uIU/ML (0.55-4.78)
== END ==
LOC: M SFHCCLAY 08:37
PROVIDERS: ATTEND Family Medicine
DX: E11.9 Type 2 diabetes mellitus without complications (principal); I10 Essential (primary) hypertension

== ENCOUNTER → 2023-10-20 | Outpatient (REF) | payer OTHER, MEDICAID ==
[~2023-10-20] MED LIST changes: -RAMI1CAP24 PO; +RAMI5CAP60 PO
[2023-10-20 11:37] LABS: BILIRUBIN,TOTAL 0.7 MG/DL (0.3-1.2); CALCIUM LEVEL 8.9 MG/DL (8.3-10.6); CREATININE FOR GFR 1.46 MG/DL (0.70-1.30); POTASSIUM SERUM 4.7 MMOL/L (3.5-5.1); PSA SCREENING 0.25 NG/ML (< 4.00); TOTAL PROTEIN 7.4 G/DL (5.7-8.2)
== END ==
LOC: M SFHCCLAY 08:14
PROVIDERS: ATTEND Family Medicine
DX: I10 Essential (primary) hypertension (principal); Z12.5 Encounter for screening for malignant neoplasm of prostate
CPT/HCPCS: 80053; G0103

== ENCOUNTER 2024-01-12 16:06 | Inpatient (IN) | payer OTHER, MEDICAID ==
[~2024-01-12] VITALS: Ht 172.7 cm; Wt 113.8 kg
[2024-01-12] MEDS ORDERED: RAMI2.5C42 PO (16:19)
[2024-01-12] MEDS ORDERED: NITR0.4S14 SL (16:19)
[2024-01-12] MEDS ORDERED: ASPI81CH33 PO (16:19)
[2024-01-12] MEDS ORDERED: CARV6.25 PO (16:19)
[2024-01-12] MEDS ORDERED: BUPR-71 PO (16:19)
[2024-01-12 16:48] LABS: BASO % 0.3 % (0.0-1.0); EOS # 0.1 10^3/uL (0.0-0.5); EOS % 2.4 % (0.0-3.0); HEMATOCRIT 41.6 % (42.0-52.0); HEMOGLOBIN 13.8 g/dl (13.5-17.5); LYMPH # 1.2 10^3/uL (1.5-5.0); LYMPH % 19.7 % (24.0-44.0); MEAN CORPUSCULAR HEMOGLOBIN 31.9 pg (27.0-33.0); MEAN CORPUSCULAR HGB CONC 33.2 g/dl (32.0-36.5); MEAN CORPUSCULAR VOLUME 96.1 fl (80.0-96.0); MONO # 0.8 10^3/uL (0.0-0.8); MONO % 14.2 % (2.0-8.0); NEUTROPHILS # 3.7 10^3/uL (1.5-8.5); NEUTROPHILS % 63.2 % (36.0-66.0); PLATELET COUNT, AUTOMATED 271 10^3/uL (150-450); RED BLOOD COUNT 4.33 10^6/uL (4.30-6.10); WHITE BLOOD COUNT 5.8 10^3/uL (4.0-10.0)
[2024-01-12 17:03] LABS: CALCIUM LEVEL 9.3 MG/DL (8.3-10.6); CREATININE FOR GFR 1.27 MG/DL (0.70-1.30); GLOMERULAR FILTRATION RATE 59.7 (>42); MAGNESIUM LEVEL 2.3 MG/DL (1.8-2.4); PHOSPHORUS LEVEL 3.9 MG/DL (2.4-5.1); POTASSIUM SERUM 4.2 MMOL/L (3.5-5.1)
[2024-01-12 17:04] LABS: CK-MB VALUE MASS 1.1 NG/ML (<3.6); MB/CK RELATIVE INDEX 1.25 (< OR =4)
[2024-01-12] MEDS: AMIODARONE 150MG/3ML VIAL IVP STA (17:05)
[2024-01-12 17:07] LABS: THYROID STIMULATING HORMONE 2.077 uIU/ML (0.55-4.78)
[2024-01-12 17:08] LABS: FREE T4 1.24 NG/DL (0.89-1.76)
[2024-01-12 17:14] LABS: INR 1.13; PARTIAL THROMBOPLASTIN TIME 36.2 SECONDS (24.8-34.2); PROTHROMBIN TIME 14.8 SECONDS (12.5-14.5)
[2024-01-12] MEDS: AMIODARONE HCL 360 MG in IV 1 EA IV SCH (18:42)
[2024-01-12] MEDS ORDERED: FURO40TA2 PO (19:25)
[2024-01-12] MEDS ORDERED: MULTTAB61 PO (19:25)
[2024-01-12] MEDS ORDERED: ELIQ5TAB PO (19:25)
[2024-01-12] MEDS ORDERED: HOME MED LIST COMPLETE! XX SCH (19:30)
[2024-01-12] MEDS ORDERED: NITROGLYCERIN 0.4MG SUBL TABLET SL PRN (20:45)
[2024-01-12] MEDS ORDERED: DAPAGLIFLOZIN PROPANEDIOL 10MG TABLET (FARXIGA) PO SCH (21:00)
[2024-01-12] MEDS ORDERED: MAGNESIUM SULFATE IN WATER 2GM 50ML BAG (40MG/ML) (FOR ER ONLY) As Ordered ONE (21:57)
[2024-01-12 22:00] VITALS: BP 124/80; TEMP 98.4; O2SAT 95
[2024-01-12] MEDS: ATORVASTATIN 20 MG TAB PO SCH (22:12)
[2024-01-12] MEDS: PREGABALIN 75 MG CAP(LYRICA) PO SCH (22:12)
[2024-01-12] MEDS: CARVedilol 6.25 MG TAB PO SCH (22:13)
[2024-01-12] MEDS: FAMOTIDINE 20 MG TAB PO SCH (22:13)
[2024-01-12] MEDS: APIXABAN 5 MG TAB (ELIQUIS) PO SCH (22:13)
[2024-01-12] MEDS: MAGNESIUM SULFATE IN WATER 2 GM in IV 1 EA IV STA (22:14)
[2024-01-12 22:15] VITALS: BP 105/60; O2SAT 94
[2024-01-12 22:30] VITALS: BP 101/60; O2SAT 93
[2024-01-12 23:00] VITALS: BP 97/54; O2SAT 94
[2024-01-12] MEDS: LIDOCAINE 2% INJ 100 MG/5 ML SYRINGE IV ONE (23:02)
[2024-01-12] MEDS: LIDOCAINE 2GM IN D5W 500ML 2,000 MG in IV 1 EA IV SCH (23:03)
[2024-01-13] VITALS (19 sets, daily range): BP systolic 100–137; BP diastolic 61–88; TEMP 97.2–97.6; O2SAT 93–96
[2024-01-13] MEDS: AMIODARONE HCL 360 MG in IV 1 EA IV SCH (00:47)
[2024-01-13 04:42] LABS: BASO % 0.4 % (0.0-1.0); EOS # 0.1 10^3/uL (0.0-0.5); EOS % 2.3 % (0.0-3.0); HEMATOCRIT 40.1 % (42.0-52.0); LYMPH % 19.7 % (24.0-44.0); MEAN CORPUSCULAR HEMOGLOBIN 31.1 pg (27.0-33.0); MEAN CORPUSCULAR HGB CONC 32.4 g/dl (32.0-36.5); MEAN CORPUSCULAR VOLUME 95.9 fl (80.0-96.0); MONO # 0.6 10^3/uL (0.0-0.8); MONO % 10.8 % (2.0-8.0); NEUTROPHILS # 3.5 10^3/uL (1.5-8.5); NEUTROPHILS % 66.6 % (36.0-66.0); PLATELET COUNT, AUTOMATED 217 10^3/uL (150-450); RED BLOOD COUNT 4.18 10^6/uL (4.30-6.10); WHITE BLOOD COUNT 5.3 10^3/uL (4.0-10.0)
[2024-01-13 05:07] LABS: BLOOD UREA NITROGEN 24 MG/DL (9-23); CALCIUM LEVEL 8.7 MG/DL (8.3-10.6); CARBON DIOXIDE LEVEL 31 MMOL/L (20-31); CHLORIDE LEVEL 104 MMOL/L (98-107); CREATININE FOR GFR 1.11 MG/DL (0.70-1.30); GLOMERULAR FILTRATION RATE > 60.0 (>42); GLUCOSE, FASTING 122 MG/DL (74-106); MAGNESIUM LEVEL 2.8 MG/DL (1.8-2.4); POTASSIUM SERUM 4.2 MMOL/L (3.5-5.1); SODIUM LEVEL 139 MMOL/L (136-145)
[2024-01-13] MEDS ORDERED: ramipriL 1.25 MG CAP PO SCH (09:00)
[2024-01-13] MEDS ORDERED: FUROSEMIDE 40 MG TAB PO SCH ×2 (09:00→12:00)
[2024-01-13] MEDS: LIDOCAINE 2GM IN D5W 500ML 2,000 MG in IV 1 EA IV SCH (09:06)
[2024-01-13] MEDS: ASPIRIN 81MG CHEW TABLET PO SCH (09:07)
[2024-01-13] MEDS: buPROPion **SR TABLET** (ZYBAN) 150MG PO SCH (09:07)
[2024-01-13] MEDS ORDERED: GLUCOSE 4 GM CHEW PO PRN (10:45)
[2024-01-13] MEDS ORDERED: GLUCAGON INJ 1MG VIAL SC PRN (10:45)
[2024-01-13] MEDS ORDERED: DEXTROSE 50% 50ML SYRINGE IV PRN (10:45)
[2024-01-13] MEDS: ACETAMINOPHEN 325 MG TAB PO ONE (10:56)
[2024-01-13] MEDS ORDERED: INSULIN LISPRO (NovoLOG) PER UNIT SC SCH ×2 (12:00→21:00)
== END 2024-01-13 11:55 | disposition short-term general hospital (02) | DRG 309 ==
LOC: M ED 16:06 → EDBD 16:06 → M ED INP 20:45 → M ICU 21:36
PROVIDERS: ADMIT Student in an Organized Health Care Education/Training Program; ATTEND Internal Medicine Pulmonary Disease
PROC: B246ZZZ Ultrasonography of Right and Left Heart (ICD-10-PCS; principal; 2024-01-13)
DX: I47.29 Other ventricular tachycardia (principal); I50.32 Chronic diastolic (congestive) heart failure; I48.91 Unspecified atrial fibrillation; I25.5 Ischemic cardiomyopathy; I25.10 Atherosclerotic heart disease of native coronary artery without angina pectoris; E78.5 Hyperlipidemia, unspecified; E11.40 Type 2 diabetes mellitus with diabetic neuropathy, unspecified; I11.0 Hypertensive heart disease with heart failure; G25.81 Restless legs syndrome; F32.A Depression, unspecified; Z95.1 Presence of aortocoronary bypass graft; Z95.810 Presence of automatic (implantable) cardiac defibrillator; Z79.01 Long term (current) use of anticoagulants; Z79.82 Long term (current) use of aspirin; Z79.84 Long term (current) use of oral hypoglycemic drugs; Z79.899 Other long term (current) drug therapy; Z88.8 Allergy status to other drugs, medicaments and biological substances

== ENCOUNTER → 2024-03-23 | Outpatient (REF) | payer OTHER, MEDICAID ==
[~2024-03-23] MED LIST changes: +ASPI81CH33 PO; +BUPR-71 PO; +CARV6.25 PO; +MULTTAB61 PO; +NITR0.4S14 SL; +RAMI2.5C42 PO
[2024-03-23 12:33] LABS: CREATININE FOR GFR 1.35 MG/DL (0.70-1.30); GLOMERULAR FILTRATION RATE 55.6 (>42)
== END ==
LOC: M LABDRAWC 11:21
PROVIDERS: ATTEND Internal Medicine Cardiovascular Disease
DX: N18.30 Chronic kidney disease, stage 3 unspecified (principal)

== ENCOUNTER → 2024-04-22 | Outpatient (REF) | payer MEDICARE, MEDICAID ==
[2024-04-22 12:42] LABS: BASO % 0.6 % (0.0-1.0); EOS # 0.2 10^3/uL (0.0-0.5); EOS % 2.5 % (0.0-3.0); HEMATOCRIT 47.1 % (42.0-52.0); LYMPH # 0.8 10^3/uL (1.5-5.0); LYMPH % 11.8 % (24.0-44.0); MEAN CORPUSCULAR HEMOGLOBIN 29.9 pg (27.0-33.0); MEAN CORPUSCULAR HGB CONC 31.8 g/dl (32.0-36.5); MEAN CORPUSCULAR VOLUME 93.8 fl (80.0-96.0); MONO # 0.5 10^3/uL (0.0-0.8); MONO % 8.2 % (2.0-8.0); NEUTROPHILS # 4.9 10^3/uL (1.5-8.5); NEUTROPHILS % 76.6 % (36.0-66.0); PLATELET COUNT, AUTOMATED 267 10^3/uL (150-450); RED BLOOD COUNT 5.02 10^6/uL (4.30-6.10); WHITE BLOOD COUNT 6.4 10^3/uL (4.0-10.0)
[2024-04-22 13:01] LABS: HEMOGLOBIN A1c 5.6 % (4.0-6.0)
[2024-04-22 13:15] LABS: BILIRUBIN,TOTAL 0.4 MG/DL (0.3-1.2); CHOLESTEROL RISK RATIO 3.94 (<5); CREATININE FOR GFR 1.62 MG/DL (0.70-1.30); GLOMERULAR FILTRATION RATE 45.1 (>42); HDL CHOLESTEROL 37.3 MG/DL (>40); LDL CHOLESTEROL 85.1 MG/DL (<100); NON-HDL-C 109.7 MG/DL; POTASSIUM SERUM 4.4 MMOL/L (3.5-5.1); TOTAL PROTEIN 7.8 G/DL (5.7-8.2)
[2024-04-22 13:16] LABS: THYROID STIMULATING HORMONE 1.652 uIU/ML (0.55-4.78)
== END ==
LOC: M SFHCCLAY 08:23
PROVIDERS: ATTEND Family Medicine
DX: I10 Essential (primary) hypertension (principal); E11.9 Type 2 diabetes mellitus without complications

== ENCOUNTER → 2024-06-02 | Outpatient (REF) | payer MEDICARE, MEDICAID ==
[2024-06-02 13:12] LABS: ALBUMIN 3.9 G/DL (3.2-5.2); ALKALINE PHOSPHATASE 65 U/L (40-129); ALT/SGPT 59 U/L (7.0-40); AST/SGOT 27 U/L (<34); BILIRUBIN,TOTAL 0.4 MG/DL (0.3-1.2); BLOOD UREA NITROGEN 34 MG/DL (9-23); CALCIUM LEVEL 9.1 MG/DL (8.3-10.6); CARBON DIOXIDE LEVEL 31 MMOL/L (20-31); CHLORIDE LEVEL 102 MMOL/L (98-107); CK-MB VALUE MASS < 1.0 NG/ML (<3.6); CREATININE FOR GFR 1.44 MG/DL (0.70-1.30); GLOMERULAR FILTRATION RATE 51.6 (>42); GLUCOSE, FASTING 103 MG/DL (74-106); MAGNESIUM LEVEL 2.5 MG/DL (1.8-2.4); POTASSIUM SERUM 4.4 MMOL/L (3.5-5.1); SODIUM LEVEL 142 MMOL/L (136-145); TOTAL PROTEIN 7.7 G/DL (5.7-8.2)
[2024-06-02 13:18] LABS: CPK CREATINE PHOSPHOKINASE 118 U/L (46-171); MB/CK RELATIVE INDEX 0.84 (< OR =4)
== END ==
LOC: M SFHCCLAY 09:28
PROVIDERS: ATTEND Nurse Practitioner Family
DX: I10 Essential (primary) hypertension (principal); M51.372 Other intervertebral disc degeneration, lumbosacral region with discogenic back pain and lower extremity pain; R29.898 Other symptoms and signs involving the musculoskeletal system

== ENCOUNTER → 2024-06-17 | Outpatient (REF) | payer MEDICARE, MEDICAID ==
[2024-06-17 13:21] LABS: ALBUMIN 3.8 G/DL (3.2-5.2); BILIRUBIN,TOTAL 0.5 MG/DL (0.3-1.2); CALCIUM LEVEL 9.5 MG/DL (8.3-10.6); CREATININE FOR GFR 1.97 MG/DL (0.70-1.30); GLOMERULAR FILTRATION RATE 35.9 (>42); MAGNESIUM LEVEL 2.3 MG/DL (1.8-2.4); TOTAL PROTEIN 7.4 G/DL (5.7-8.2)
== END ==
LOC: M SFHCCLAY 08:27
PROVIDERS: ATTEND Nurse Practitioner Family
DX: E83.41 Hypermagnesemia (principal); I10 Essential (primary) hypertension

== ENCOUNTER → 2024-06-17 | Outpatient (CLI) | payer MEDICARE, MEDICAID | LOC: M PLAIMG 07:04 | PROVIDERS: ATTEND Nurse Practitioner Family | DX: M51.372 Other intervertebral disc degeneration, lumbosacral region with discogenic back pain and lower extremity pain (principal); R29.898 Other symptoms and signs involving the musculoskeletal system ==

== ENCOUNTER → 2024-07-02 | Outpatient (REF) | payer MEDICARE, MEDICAID ==
[2024-07-02 18:50] LABS: ALBUMIN 4.1 G/DL (3.2-5.2); BILIRUBIN,TOTAL 0.4 MG/DL (0.3-1.2); CALCIUM LEVEL 9.2 MG/DL (8.3-10.6); CREATININE FOR GFR 1.73 MG/DL (0.70-1.30); GLOMERULAR FILTRATION RATE 41.9 (>42); POTASSIUM SERUM 5.2 MMOL/L (3.5-5.1); TOTAL PROTEIN 7.9 G/DL (5.7-8.2)
== END ==
LOC: M SFHCCLAY 14:45
PROVIDERS: ATTEND Family Medicine
DX: R29.898 Other symptoms and signs involving the musculoskeletal system (principal)

== ENCOUNTER → 2024-10-22 | Outpatient (REF) | payer MEDICARE, MEDICAID ==
[~2024-10-22] MED LIST changes: -AMIO200T49 PO; +AMIO200T54 PO
[2024-10-22 12:41] LABS: PLATELET COUNT, AUTOMATED 292 10^3/uL (150-450)
[2024-10-22 13:12] LABS: ALT/SGPT 83.0 U/L (7.0-40); AST/SGOT 43.0 U/L (<34); CALCIUM LEVEL 8.3 MG/DL (8.3-10.6); CARBON DIOXIDE LEVEL 33.0 MMOL/L (20-31); CHLORIDE LEVEL 105.0 MMOL/L (98-107); CREATININE FOR GFR 1.45 MG/DL (0.70-1.30); GLOMERULAR FILTRATION RATE 51.8 (>42); POTASSIUM SERUM 4.0 MMOL/L (3.5-5.1); SODIUM LEVEL 147.0 MMOL/L (136-145)
[2024-10-22 13:17] LABS: ESTIMATED AVERAGE GLUCOSE 117.0 MG/DL (60-110)
== END ==
LOC: M SFHCCLAY 08:23
PROVIDERS: ATTEND Family Medicine
DX: E11.9 Type 2 diabetes mellitus without complications (principal)

== ENCOUNTER → 2025-02-21 | Outpatient (REF) | payer MEDICARE, MEDICAID ==
[2025-02-21 14:41] LABS: FREE T4 1.6 NG/DL (0.89-1.76)
[2025-02-23 14:53] LABS: SSA SJOGRENS A <1.0 NEG AI (<1.0 NEG); SSB SJOGRENS B <1.0 NEG AI (<1.0 NEG)
== END ==
LOC: M LABDRAWC 12:33 → M LAB REF 12:33
PROVIDERS: ATTEND Ophthalmology
DX: H16.223 Keratoconjunctivitis sicca, not specified as Sjogren's, bilateral (principal); Z79.899 Other long term (current) drug therapy